=== PATIENT | male | born 1955 | race Caucasian/White ===

== ENCOUNTER → 2021-02-14 | Outpatient (CLI) | payer OTHER, MEDICARE | LOC: LAB 11:15 | PROVIDERS: ATTEND Specialist | DX: Z01.812 Encounter for preprocedural laboratory examination (principal); Z20.822 Contact with and (suspected) exposure to COVID-19 ==

== ENCOUNTER → 2021-02-19 | Outpatient (CLI) | payer OTHER, MEDICARE ==
[~2021-02-19] VITALS: Ht 177.8 cm; Wt 72.6 kg
[~2021-02-19] MED LIST: ASA81BEC PO; FLONASE 0.05%50 MCG NARES; PROTONIX40 M4 PO; ZYRTEC10 M4 PO
--- NOTE | 2021-02-21 17:07 | PATH ---
[facility] [address] [place] [address] PATHOLOGY RPT PROCEDURE Name: ROSE CURRY Room #: REG EDGAR [facility].#: [id number] Admission: 02/19/21 Date of : 53 Discharge: Report #: [id number] Path Case #: [id number] [facility] Accession Number: [id number] . 01 Material submitted: . colon - RANDOM COLON BIOPSY . 01 Clinical history: . HISTORY OF POLYPS RULE OUT MICROSCOPIC COLITIS DTS/COLONOSCOPY . 02 Diagnosis: Large intestine mucosa, random colon to rule out microscopic colitis, endoscopic biopsy: - Mild focal acute colitis. - Negative for dysplasia or malignancy. 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 02 Comment: Sections of the colonic mucosa designated "random colon" show focal cryptitis, and a moderately cellular lamina propria composed predominantly of lymphocytes and plasma cells and occasional eosinophils. Surface ulceration is not identified. There are no crypt abscesses, granulomas or viral inclusions. The process affects all the fragments with a similar intensity. Given the description, the differential diagnosis includes focal mild acute colitis of self-limited etiology, resolving episode of acute colitis, acute diverticulitis, medication or drug-induced colitis, as well as early inflammatory bowel disease. Please correlate clinically and followup as indicated. (IUV:postdoctoral research associate; 02/21/2021) . 02 Electronically signed: . Ragini Lujan MD, Pathologist NPI- [id number] . 01 Gross description: . The specimen is received in formalin, labeled "Rose Curyr, random colon biopsy". Received are five segments of pale hoep tissue ranging in size from 0.1-0.5 cm in maximum dimensions. The specimen is submitted entirely in cassette A1. (CAA; 02/20/2021) QAC/QAC 02/20/2021 1551 Local . 02 Pathologist provided ICD-10: K52.[address] [address] PATHOLOGY RPT PROCEDURE Name: ROSE CURRY Room #: REG [facility].#: [id number] Admission: 02/19/21 Date of : 53 Discharge: Report #: [id number] Path Case #: [id number] . 02 [facility] . [id number] Specimen Comment: A courtesy copy of this report has been sent to [phone] Specimen Comment: [id number] Specimen Comment: Report sent to / DR NEELY Performed at: [address], [place], [place] [id number] MD Kris Sargent MD Phone: [phone] Performed at: [address] [id number] MD Ragini Lujan MD Phone: [phone]
--- NOTE | 2021-02-26 10:17 | O ---
[facility] [place] [address] [place] [address] OPERATIVE REPORT Name: ROSE APARICIO Room #: REG [facility]#: [id number] Admission: 02/19/21 Attend Phys: Bello Fernandes Discharge: Date of : 53 Report #: [id number] THIS REPORT FOR: cc: Anatoly Portillo MD, John L. MD McElhinney, Christian C. MD ~ DOC #: [id number] cc: MD Bello Ponce MD DATE OF SERVICE: 02/19/2021 PROCEDURE PERFORMED: Colonoscopy with biopsies. HISTORY OF PRESENT ILLNESS: The patient is a 65-year-old male with an episode of diarrhea approximately 6 weeks ago. Stool studies at that time were negative. He reportedly had a CT scan of the abdomen and pelvis showing a possible thickening of the transverse colon. He denied any bleeding or abdominal pain during this episode. It resolved after approximately one week. His last colonoscopy was in 2017 and was basically normal. No family history of colon cancer. Plan is for colonoscopy. DESCRIPTION OF PROCEDURE: The risks and benefits of the procedure were explained to the patient, those risks including, but not limited to bleeding, perforation and the risk of sedation. He understood these risks and gave informed consent. Sedation was given using propofol per anesthesia. Next, a digital rectal exam was initially performed, which was normal. Next, using a standard Olympus colonoscope, the scope was placed in the patient's anus and advanced under direct vision to the cecum. The overall prep was excellent. The cecum and ileocecal valve were normal in appearance. The ascending, transverse and descending colon were normal. Random biopsies were obtained in the transverse colon. Again, no evidence of abnormalities in these areas were noted. No evidence of colitis. Biopsies were obtained to rule out the possibility of microscopic colitis. Sigmoid diverticulosis was noted. No evidence of inflammation. The rectal mucosa was normal. On retroflexion, small nonbleeding internal hemorrhoids were noted. The scope was then withdrawn and the procedure terminated. The patient tolerated the procedure well. IMPRESSION: 1. Sigmoid diverticulosis. 2. Small internal hemorrhoids. 3. Otherwise, normal colonoscopy. RECOMMENDATIONS: 1. Await biopsy results. 2. Repeat colonoscopy in [address] [address] OPERATIVE REPORT Name: ROSE APARICIO Room #: REG ERUM [place]#: [id number] Admission: 02/19/21 Attend Phys: Bello Fernandes Discharge: Date of : 53 Report #: [id number] Thank you for allowing me to participate in his care. Bello Richardson MD CCM/PUN <ELECTRONICALLY SIGNED> By: Bello Richardson MD 02/26/21 1017 0926 1121 Bello Richardson MD /nt
== END | disposition home or self-care (01) ==
LOC: GI 08:11
PROVIDERS: ATTEND Specialist
DX: K52.9 Noninfective gastroenteritis and colitis, unspecified (principal); R93.3 Abnormal findings on diagnostic imaging of other parts of digestive tract; K57.30 Diverticulosis of large intestine without perforation or abscess without bleeding; K64.8 Other hemorrhoids; K21.9 Gastro-esophageal reflux disease without esophagitis; Z98.890 Other specified postprocedural states; Z79.899 Other long term (current) drug therapy; Z85.828 Personal history of other malignant neoplasm of skin; Z87.891 Personal history of nicotine dependence; Z96.642 Presence of left artificial hip joint; Z88.6 Allergy status to analgesic agent
CPT/HCPCS: 62110; 62900

== ENCOUNTER → 2021-10-22 | Outpatient (CLI) | payer OTHER, MEDICARE ==
[~2021-10-22] VITALS: Ht 177.8 cm; Wt 72.6 kg
--- NOTE | 2021-10-22 09:38 | P ---
[facility] [place] [address] PROCEDURE REPORT Name: ROSE APARICIO Room #: REG [facility]#: [id number] Admission: 10/22/21 Attend Phys: Bello Fernandes Discharge: Date of : 53 Report #: [id number] THIS REPORT FOR: cc: Anatoly Portillo MD, John L. MD McElhinney, Christian C. MD ~ cc: Anatoly Portillo MD DATE OF SERVICE: 10/22/2021 PROCEDURE PERFORMED: Upper endoscopy with biopsies. HISTORY OF PRESENT ILLNESS: The patient is a 66-year-old male with a history of gastroesophageal reflux disease and Macias's esophagus. Last upper endoscopy in 08/2018 was negative for Macias's. He is here for a 3-year followup. He is taking Prevacid 30 mg b.i.d. Denies any heartburn, dysphagia, nausea, or vomiting. Plan is for upper endoscopy. DESCRIPTION OF PROCEDURE: The risks and benefits of the procedure were explained to the patient, those risks including but not limited to bleeding, perforation and the risk of sedation. He understood these risks and gave informed consent. Sedation was given using propofol per anesthesia. Next, using a standard Olympus upper endoscope, the scope was placed in the patient's mouth and advanced under direct vision through the esophagus, stomach and into the second portion of the duodenum. The larynx was normal in appearance. The upper and mid esophagus was normal. In the distal esophagus, a short segment of possible Macias's was again noted. No evidence of esophagitis. Biopsies were obtained. Overall, the gastric mucosa was normal. The pylorus was normal and patent. The duodenal bulb, first and second portion were all normal. The scope was then withdrawn and the procedure terminated. The patient tolerated the procedure well. IMPRESSION: 1. 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 2. Otherwise, normal upper endoscopy. RECOMMENDATIONS: 1. Await biopsy results. 2. Continue PPI therapy. Thank you for allowing me to participate in his care. <ELECTRONICALLY SIGNED> By: Bello Richardson MD 10/22/21 0938 0734 0830 Bello Richardson MD /nt
--- NOTE | 2021-10-28 12:06 | PATH ---
[facility] [address] [place] [address] PATHOLOGY RPT PROCEDURE Name: APARICIOROSE [id number] Ad[facility]: 10/22/21 Date of : 53 Discharge: Report #: [id number] Path Case #: [id number] [facility] Accession Number: [id number] . 01 Material submitted: . esophagus - DISTAL ESOPHAGUS BX. Modifiers: distal . 01 Clinical history: . IBARRA'S ESOPHAGUS GERD . 02 Diagnosis: Esophagus "distal", biopsy: - Esophageal squamous and gastric cardia mucosa with features of reflux esophagitis and intestinal metaplasia (Barretts esophagus). - Negative for dysplasia and malignancy. (FAIZAN:alex; 10/27/2021) MBR 10/28/2021 1105 Local . 02 Electronically signed: . Claudia Delcid MD, Pathologist NPI- [id number] . 01 Gross description: . The specimen is received in formalin, labeled "Patricio, Rose, distal esophagus BX". Received are 3 segments of pale hope tissue ranging in size from 0.3 to 0.5 cm in maximum dimensions. The specimen is submitted entirely in cassette A1.([facility]; 10/23/2021) [facility] 10/23/2021 1247 Local . 02 Pathologist provided ICD-10: K20.90 . 02 CPT . 112014 Specimen Comment: A courtesy copy of this report has been sent to [phone] Specimen Comment: [id number] Specimen Comment: Report sent to / DR NEELY Performed at: 01 [facility] [address] [id number] MD Kris Sargent MD Phone: [phone] Performed at: 02 [facility] [address] [id number] MD Flavio Alberts MD Phone: [phone]
== END | disposition home or self-care (01) ==
LOC: GI 09-24 07:02
PROVIDERS: ATTEND Specialist
DX: K21.00 Gastro-esophageal reflux disease with esophagitis, without bleeding (principal); K22.70 Barrett's esophagus without dysplasia; Z20.822 Contact with and (suspected) exposure to COVID-19; Z98.890 Other specified postprocedural states; Z79.899 Other long term (current) drug therapy; Z87.891 Personal history of nicotine dependence; Z85.828 Personal history of other malignant neoplasm of skin; Z96.642 Presence of left artificial hip joint
CPT/HCPCS: 62110; 62900